=== PATIENT | female | born 1950 | race Caucasian/White ===

== ENCOUNTER 2016-08-14 23:05 | Inpatient (IN) | payer OTHER ==
[~2016-08-14] VITALS: Ht 172.7 cm; Wt 95.8 kg
--- NOTE | 2016-08-14 23:38 | NUR ---
PATIENT WHEN ARRIVED HANDS WERE VERY COLD AND TIPS CYANOTIC. FULL MOVEMENT STATED SHE GETS COLD EASY
--- NOTE | 2016-08-14 23:41 | NUR ---
NIH SCALE NOT ABLE TO DO LEGS D/T PAIN IN KNEES
[2016-08-14] MEDS ORDERED: SODIUM CHLORIDE FLUSH 10 ML SYR IV PRN (23:45)
[2016-08-14] MEDS ORDERED: SODIUM CHLORIDE FLUSH 3 ML SYR IV PRN (23:45)
[2016-08-14] MEDS ORDERED: SODIUM CHLORIDE 250 ML IV PRN (23:45)
[2016-08-15] VITALS (12 sets, daily range): BP systolic 105–164; BP diastolic 50–95
[2016-08-15 00:23] LABS: BASOPHILS % (AUTO) 0 % (0-2); EOSINOPHILS % (AUTO) 0 % (0-4); LYMPHOCYTES # (AUTO) 1.4 X10^3; MEAN CORPUSCULAR VOLUME 89 FL (80-100); MEAN PLATELET VOLUME 10.7 FL (6.0-9.5); MONOCYTES % (AUTO) 12 % (3-11); NEUTROPHILS # (AUTO) 5.9 X10^3; NEUTROPHILS % (AUTO) 71 % (51-67); PLATELET COUNT 215 10^3uL (150-450); WHITE BLOOD COUNT 8.32 10^3uL (4.0-11.0)
[2016-08-15 00:25] LABS: MEAN CORPUSCULAR HEMOGLOBIN 33.8 PG (26.0-34.0); MEAN CORPUSCULAR HGB CONC 38.2 g/dL (31.0-37.0)
[2016-08-15 00:30] LABS: ALBUMIN 3.6 g/dL (3.4-5.0); ALKALINE PHOSPHATASE 110 U/L (38-126); ANION GAP 18.5 MEQ/L (3-15); BUN/CREATININE RATIO 15 (10-20); CALCULATED IONIZED CALCIUM 4.2 mg/dL (3.8-4.6); CREATINE KINASE 39 U/L (30-135); MAGNESIUM* 1.6 mg/dL (1.6-2.3); TOTAL PROTEIN 6.7 g/dL (6.4-8.5)
[2016-08-15 00:31] LABS: BILIRUBIN,URINE Negative (Negative); COLOR,URINE Yellow; GLUCOSE, URINE (UA) Negative (Negative); LEUKOCYTE ESTERASE ,URINE 2+ (Negative)
[2016-08-15 00:32] LABS: CLARITY,URINE Slightly Cloudy
[2016-08-15 00:38] LABS: RBC,URINE 0-2 /HPF; URINE CENTRIFUGED VOLUME 12 mL
[2016-08-15 00:43] LABS: AMPHETAMINE SCREEN, URINE Negative (Negative); CANNABINOID SCREEN, URINE Negative (Negative); METHAMPHETAMINE SCREEN URINE S NEGATIVE (NEGATIVE); OPIATE SCREEN URINE Negative (Negative); PROPOXYPHENE STAT NEGATIVE (NEGATIVE)
[2016-08-15] MEDS ORDERED: ONDANSETRON 2 MG/ML (Z0FRAN) 2 ML VIAL IV ONE (00:45)
[2016-08-15] MEDS ORDERED: POTASSIUM CL IVPB 50 ML IV ONE ×2 (00:50)
[2016-08-15] MEDS ORDERED: THIAMINE 100 MG/ML (VITAMIN B1) 2 ML VIAL ONE ×2 (00:55→05:19)
[2016-08-15] MEDS ORDERED: MAGNESIUM SULFATE 1 GM/2 ML VIAL ONE ×2 (00:55→05:19)
[2016-08-15] MEDS ORDERED: MULTIVITAMINS (MVI) 2 5 ML VIALS IV ONE ×2 (00:55→05:19)
[2016-08-15] MEDS: MAGNESIUM SULFATE 1GM VIAL 2 GM, THIAMINE INJ 100 MG, MULTIVITAMIN INJ 10 ML in D5LR 1,... IV SCH ×2 (01:05→02:47)
[2016-08-15] MEDS ORDERED: BISACODYL 10 MG SUPP (DULCOLAX) PR PRN (01:55)
[2016-08-15] MEDS ORDERED: HYDROmorphone 1 MG/ML (DILAUDID) SYRINGE IV PRN ×2 (01:55→08:17)
[2016-08-15] MEDS ORDERED: LORazepam 2 MG/ML (ATIVAN) 1 ML VIAL IV PRN ×2 (01:55)
[2016-08-15] MEDS ORDERED: ONDANSETRON 2 MG/ML (Z0FRAN) 2 ML VIAL IV PRN (01:55)
[2016-08-15] MEDS ORDERED: ACETAMINOPHEN 325 MG TAB (TYLENOL) PO PRN (01:55)
[2016-08-15] MEDS ORDERED: MAG HYDROX/AL HYDROX/SIMETH 200-200-20/5 ML (MAG-AL PLUS) 30 ML UDC PO PRN (01:55)
[2016-08-15] MEDS ORDERED: DOCUSATE SODIUM 100 MG (COLACE) CAP PO PRN (01:55)
[2016-08-15] MEDS ORDERED: HALOPERIDOL 5 MG/ML (HALDOL) 1 ML AMP IM PRN (01:55)
--- NOTE | 2016-08-15 02:05 | NUR ---
Pt arrives to floor via cart from ED accompanied by family. Ambulates to weight chair with staff assist x2. Pt very unsteady on her feet. See admission assessment for further details.
[2016-08-15] MEDS ORDERED: ALBUTEROL HFA (VENTOLIN HFA) COMMON CANNISTER IH SCH (02:15)
[2016-08-15] MEDS: POTASSIUM CL IVPB 50 ML IV SCH ×3 (03:15→05:16)
[2016-08-15] MEDS ORDERED: D5LR 1,000 ML IV ONE (05:19)
[2016-08-15] MEDS: MULTIVITAMIN INJ 10 ML, THIAMINE INJ 100 MG, MAGNESIUM SULFATE 1GM VIAL 2 GM in D5LR 1,... IV SCH ×2 (05:36→20:05)
--- NOTE | 2016-08-15 06:13 | NUR ---
Pt rests well since admission. Resp even and non labored on RA. Banana bag infusing at 75 ml/hr. No c/o pain at this time.
[2016-08-15 06:39] LABS: MEAN CORPUSCULAR VOLUME 89 FL (80-100); MEAN PLATELET VOLUME 10.7 FL (6.0-9.5); PLATELET COUNT 203 10^3uL (150-450)
[2016-08-15 06:46] LABS: MEAN CORPUSCULAR HEMOGLOBIN 33.6 PG (26.0-34.0); MEAN CORPUSCULAR HGB CONC 37.8 g/dL (31.0-37.0)
[2016-08-15 06:49] LABS: ANISOCYTOSIS SLIGHT; BAND NEUTROPHILS % 0 % (0-6); EOSINOPHILS % 1 % (0-4); LYMPHOCYTES # 1.6 #; MONOCYTES # 0.4 #; MONOCYTES % 5 % (3-11); RBC MORPH SEE REFERENCE (NORMAL); SEGMENTED NEUTROPHILS % 74 % (51-67); TOTAL CELLS COUNTED 100
[2016-08-15 06:58] LABS: ALBUMIN 2.9 g/dL (3.4-5.0); ANION GAP 9.9 MEQ/L (3-15); CALCULATED IONIZED CALCIUM 4.4 mg/dL (3.8-4.6); MAGNESIUM* 2.3 mg/dL (1.6-2.3); TOTAL PROTEIN 5.6 g/dL (6.4-8.5)
--- NOTE | 2016-08-15 08:07 | NUR ---
NUTRITION ASSESSMENT Level 1 Patient: Ruth Chopra Age/Sex: 66/F Date Screened: 08-15-16 Weight: 212#/96.4 kg Height: 68 inches Primary Diagnosis: hypokalemia Diet Order: regular Relevant labs: serum alcohol 68.0, sodium 127, potassium 4.1 (2.6 on admission), glucose 99, TSH 13.40 Food allergies: N Nutrition Assessment Criteria Age over 80: N Body Mass Index (BMI) under 19: N Admission Screening Indicates Risk? 6 points Moderate/High Risk Diagnosis: N TPN or PPN: N NPO or clear liquid diet: N Serum Glucose <70 or >180: N Hgb A1c >6.7: N/A Total: 6 points Risk Screen: __ Patient at low nutritional risk based on available data; reevaluate in 5-7 days __ Patient at moderate nutritional risk based on available data; reevaluate in 3-5 days _X_ Patient at high nutritional risk; complete Nutrition Assessment within 48 hours of admission.
[2016-08-15] MEDS ORDERED: ALBUTEROL HFA (VENTOLIN HFA) COMMON CANNISTER IH PRN (08:14)
[2016-08-15] MEDS: NICOTINE PATCH REMOVAL TOP SCH (08:59)
[2016-08-15] MEDS ORDERED: LOSARTAN 100 MG (COZAAR) TABLET PO SCH (09:00)
[2016-08-15] MEDS ORDERED: INTLU SCH (09:00)
[2016-08-15] MEDS: NICOTINE 14 MG (NICODERM) PATCH TD SCH (09:00)
[2016-08-15] MEDS ORDERED: LEVOTHYROXINE 150 MCG (LEVOTHROID) TABLET PO SCH ×2 (09:00)
[2016-08-15] MEDS: NYSTATIN ORAL SUSPENSION 5 ML UDC PO SCH ×4 (09:17→20:06)
[2016-08-15] MEDS: CIPROFLOXACIN (CIPRO) 500 MG TABLET PO SCH ×2 (09:17→20:05)
[2016-08-15] MEDS: LOSARTAN 50 MG (COZAAR) TABLET PO SCH (09:17)
[2016-08-15] MEDS: LEVOTHYROXINE 175 MCG PO SCH (09:17)
[2016-08-15] MEDS: CHOLECALCIFEROL 1000 INT UNITS (VITAMIN D3) TABLET PO SCH (09:18)
[2016-08-15] MEDS: amLODIPine 10 MG (NORVASC) TAB PO SCH (09:18)
[2016-08-15] MEDS: MAGNESIUM OXIDE 400 MG (MAG-OX) TAB PO SCH (09:18)
--- NOTE | 2016-08-15 10:45 | NUR ---
Pt to MRI at this time.
--- NOTE | 2016-08-15 10:59 | NUR ---
NUTRITION ASSESSMENT Level II Patient: Ruth Chopra Age/Sex: 66/F Date Assessed: 08-15-16 ASSESSMENT Pertinent History: Patient admitted with hypokalemia and screened at high nutritional risk secondary to reports of poor appetite with weight loss over the past 6-8 weeks with profound weakness. PMHx includes non-Hodgkins lymphoma, HTN, daily alcohol use, hypothyroidism, tobacco abuse, and osteoarthritis. Noted she drinks 3 alcoholic drinks/night. She was apparently put on a gluten-free diet by her PCP because gluten gives her diarrhea. She has not, to my knowledge, actually been diagnosed with celiac disease. Meds/Nutrition: thiamine, MVI, vitamin D, Synthroid, Lactated Ringers Weight: 212#/96.4 kg Height: 68 inches Body Mass Index (BMI): 32.3 Jordan Body Weight : 140#/63.6 kg % IBW: 151% GASTROINTESTINAL Appetite: poor, eating bites Diet Order: gluten-free Unintentional loss of >10 lbs. in 3 months: unsure of amount Difficult to chew/swallow: N Diabetes: N Relevant Labs: serum alcohol 68.0, sodium 127, potassium 4.1 (2.6 on admission), glucose 99, TSH 13.40 Calculations for Nutritional Assessment Estimated calorie needs: 22-25 kcals/kg = 2,100-2,400 kcals Estimated protein needs: 1.0-1.3 g/kg ABW = 71-93 g./day DIAGNOSIS 1. Nutrition Diagnosis: Inadequate intake related to poor appetite as evidenced by reports of decreased appetite over the past 6-8 weeks with subsequent weight loss (unknown amount), weakness, and electrolyte abnormalities possibly complicated with regular alcohol intake. NUTRITIONAL INTERVENTION Goal: Patient will receive adequate nutrition to meet her needs. Plan: Will provide gluten-free diet as ordered per her usual diet, and attempt to tailor menu to patients taste preferences. Hopefully appetite will warp picker with improvement of symptoms; will follow closely. MONITORING & EVALUATION _X_ Monitor patients menu selections _X_ Monitor patients food intake per nursing notes __ Monitor NPO/clear liquid days _X_ Monitor lab values __ Monitor I&O __ Other
--- NOTE | 2016-08-15 11:24 | NUR ---
Pt back to room from MRI.
--- NOTE | 2016-08-15 14:05 | NUR ---
MED REC COMPLETED-current med list obtained from Ext Med History application, PCP medication listing, and patient interview. Conducted by Cabrera Jin, JeremieD Candidate 2017.
--- NOTE | 2016-08-15 14:30 | NUR ---
MULTIDISCIPLINARY MTG/DR. CLEMENTS: Pt. is from [place]. Over the past two months Pt. has had a 50lb weight loss and fell at work hitting her head twice. Since then Pt. has experienced disequilibrium and dizziness. Pt. sodium and potassium were low. Sodium is improving and potassium is improved. Pt. hypomagnesium is also improving. Pt. did have an MRI today. Will obtain records from Pt. PCP. Pt. will possibly benefit from skilled care but not sure Pt. will be agreeable to this.
--- NOTE | 2016-08-15 17:35 | NUR ---
Pt sitting upright in bed, eating supper meal. Banana bag infusing as ordered. New IV started at 1600 by Megan Mcdaniel RN - 22g RFA- site without redness/swelling. 20g to LFA infiltrated.
[2016-08-16] VITALS (12 sets, daily range): BP systolic 109–148; BP diastolic 56–78
[2016-08-16] MEDS: LEVOTHYROXINE 175 MCG PO SCH (06:02)
--- NOTE | 2016-08-16 06:32 | NUR ---
Patient rests in bed throughout night without needs. Up with 1 assist to bathroom. Neuros WNL. No needs at this time.
[2016-08-16 06:54] LABS: ALBUMIN 2.3 g/dL (3.4-5.0); ANION GAP 6.6 MEQ/L (3-15); MAGNESIUM* 2.5 mg/dL (1.6-2.3); PHOSPHORUS 3.2 mg/dL (2.4-4.9)
[2016-08-16] MEDS: CIPROFLOXACIN (CIPRO) 500 MG TABLET PO SCH ×2 (08:51→20:00)
[2016-08-16] MEDS: NICOTINE PATCH REMOVAL TOP SCH (08:51)
[2016-08-16] MEDS: amLODIPine 10 MG (NORVASC) TAB PO SCH (08:51)
[2016-08-16] MEDS: CHOLECALCIFEROL 1000 INT UNITS (VITAMIN D3) TABLET PO SCH (08:51)
[2016-08-16] MEDS: MAGNESIUM OXIDE 400 MG (MAG-OX) TAB PO SCH (08:51)
[2016-08-16] MEDS: LOSARTAN 50 MG (COZAAR) TABLET PO SCH (08:51)
[2016-08-16] MEDS: ENOXAPARIN 40 MG/0.4 ML (LOVENOX) SYR SC SCH (08:51)
[2016-08-16] MEDS: NICOTINE 14 MG (NICODERM) PATCH TD SCH (08:51)
[2016-08-16] MEDS: NYSTATIN ORAL SUSPENSION 5 ML UDC PO SCH ×4 (08:51→20:00)
[2016-08-16] MEDS ORDERED: ERGOCALCIFEROL 50,000 UNITS (1.25 MG) CAPSULE (VITAMIN D2) PO SCH (09:25)
--- NOTE | 2016-08-16 10:05 | NUR ---
Dr. Montgomery at bedside.
--- NOTE | 2016-08-16 10:57 | NUR ---
Tele ilsa'tori ROWE sent to lab.
[2016-08-16] MEDS: POTASSIUM CHLORIDE ER 10 MEQ CAPSULE PO SCH ×2 (12:26→17:19)
[2016-08-16] MEDS: FOLIC ACID 1 MG TAB PO SCH (12:26)
--- NOTE | 2016-08-16 17:23 | NUR ---
Pt has ambulated halls with this nurse and Dr. Montgomery. She is in her own clothes and states that she feels more comfortable this afternoon. Pt awaiting supper tray- denies appetite.
--- NOTE | 2016-08-16 19:55 | NUR ---
Neuro check within normal limits; pt. denies discomfort minus "knees that ache because of my fall". Pt. is very pleasant; resp are even and unlabored on room air. Safety issues observed; pt. wearing yellow vest as she prefers to have her own clothes on. Pt. cheerful and conversational with this nurse; call light and H2O within reach. Pt. is compliant and cooperative with fluid restriction.
[2016-08-17] VITALS (8 sets, daily range): BP systolic 109–141; BP diastolic 65–91
--- NOTE | 2016-08-17 00:20 | NUR ---
Neuro check within normal limits; no change from previous; pt. denies discomfort; no current requests.
--- NOTE | 2016-08-17 04:10 | NUR ---
Pt. has been resting in long intervals; neuro check within normal limits; denies discomfort; fluid restriction observed. Call light within reach.
[2016-08-17] MEDS: LEVOTHYROXINE 175 MCG PO SCH (06:03)
--- NOTE | 2016-08-17 06:40 | NUR ---
Pt. states she slept well last night; smiles and is very pleasant/cheerful. Pt. denies dizziness/pain. Pt. has question about lab draw times this morning; information relayed to pt. Pt. is hopeful of going home today. Pt. has been cooperative with fluid restriction; is currently watching tv; call light within reach.
[2016-08-17 08:24] LABS: ANION GAP 7.7 MEQ/L (3-15); PHOSPHORUS 3.2 mg/dL (2.4-4.9)
[2016-08-17] MEDS: MAGNESIUM OXIDE 400 MG (MAG-OX) TAB PO SCH (08:47)
[2016-08-17] MEDS: POTASSIUM CHLORIDE ER 10 MEQ CAPSULE PO SCH ×2 (08:47→17:41)
[2016-08-17] MEDS: CIPROFLOXACIN (CIPRO) 500 MG TABLET PO SCH (08:47)
[2016-08-17] MEDS: CHOLECALCIFEROL 1000 INT UNITS (VITAMIN D3) TABLET PO SCH (08:47)
[2016-08-17] MEDS: NYSTATIN ORAL SUSPENSION 5 ML UDC PO SCH ×3 (08:47→17:42)
[2016-08-17] MEDS: ENOXAPARIN 40 MG/0.4 ML (LOVENOX) SYR SC SCH ×2 (08:47→08:52)
[2016-08-17] MEDS: amLODIPine 10 MG (NORVASC) TAB PO SCH (08:47)
[2016-08-17] MEDS: FOLIC ACID 1 MG TAB PO SCH (08:48)
[2016-08-17] MEDS: LOSARTAN 50 MG (COZAAR) TABLET PO SCH (08:48)
[2016-08-17] MEDS: NICOTINE PATCH REMOVAL TOP SCH (08:50)
[2016-08-17] MEDS: NICOTINE 14 MG (NICODERM) PATCH TD SCH (08:51)
--- NOTE | 2016-08-17 09:04 | NUR ---
PT REFUSED NICODERM PATCH AND LOVENOX SHOT; THIS NURSE EXPLAINED DVT PROPHYLAXIS, NURSE OFFERED NICODERM PATCH LATER IF PT SO CHOOSES.
--- NOTE | 2016-08-17 18:19 | NUR ---
CORTISOL LEVEL REPORTED TO DR. STEIN.
--- NOTE | 2016-08-17 18:53 | NUR ---
PT INFORMED OF CORTISOL LEVEL, WILL CALL HER SON-IN-LAW FOR TRANSPORTATION HOME WHEN DR. STEIN COMPLETES DISCHARGE ORDER.
--- NOTE | 2016-08-17 19:25 | NUR ---
Saline lock DC'd with catheter fully intact; pressure applied to site with gauze; coban placed for security. Pt. tolerated procedure well. Dismissal vital signs taken: B/P 129/87; HR 86; T 97.4; R 16; O2 SAT 94% on room air. Son-in-law Anil just arrived for transportation home.
--- NOTE | 2016-08-17 19:35 | NUR ---
Review of dismissal instructions; medications and continued fluid restriction discussed. Personal belongings and dismissal packet gathered; pt. cheerful and conversational.
--- NOTE | 2016-08-17 19:45 | NUR ---
1942: This nurse escorts pt. via wheelchair to curbside outside of ER where son-in-law awaits with truck; pt. dismissed in stable condition.
[2016-08-18] MEDS ORDERED: MULTIVITAMIN W/MINERALS (THERAGRAN M) TABLET PO SCH (08:00)
[2016-08-18] MEDS ORDERED: THIAMINE 100 MG (VITAMIN B-1) TAB PO SCH (08:00)
== END 2016-08-17 19:43 | disposition home or self-care (01) | DRG 641 ==
LOC: ED 23:10 → MED/SURG 08-15 01:34
PROVIDERS: ADMIT Family Medicine; ATTEND Family Medicine
DX: E87.6 Hypokalemia (principal); B37.0 Candidal stomatitis; K90.41 Non-celiac gluten sensitivity; E87.1 Hypo-osmolality and hyponatremia; E83.42 Hypomagnesemia; F10.10 Alcohol abuse, uncomplicated; E03.9 Hypothyroidism, unspecified; R94.31 Abnormal electrocardiogram [ECG] [EKG]; S00.03XD Contusion of scalp, subsequent encounter; J44.9 Chronic obstructive pulmonary disease, unspecified; F17.210 Nicotine dependence, cigarettes, uncomplicated; T50.2X5A Adverse effect of carbonic-anhydrase inhibitors, benzothiadiazides and other diuretics, initial encounter; W19.XXXD Unspecified fall, subsequent encounter; Z91.81 History of falling; Z85.72 Personal history of non-Hodgkin lymphomas
CPT/HCPCS: 36415; 70450; 70551; 71010; 80053; 80069; 80307; 80320; 81003; 81015; 82306; 82533; 82550; 82553; 82607; 82746; 83516; 83520; 83735; 83880; 83930; 83935; 84295; 84300; 84443; 84484; 85025; 85610; 85730; 86256; 87088; 93005; 93010; 96361; 96365; 96375; 99284; 99285